=== PATIENT | female | born 1990 | race Asian ===

== ENCOUNTER 2016-10-29 17:56 | Emergency (ER) | payer OTHER ==
[~2016-10-29] VITALS: Ht 154.9 cm; Wt 49.9 kg
[~2016-10-29 17:56] MED LIST: HYDR-971 PO; NAPR500T3 PO
[2016-10-29 18:21] VITALS: BP 106/56
[2016-10-29] MEDS ORDERED: ACETAMINOPHEN 325 MG TABLET. PO ONE (18:30)
--- NOTE | 2016-10-29 18:56 | PHYS DOC ---
Past Medical History Past Medical History: No Pertinent History Past Surgical History: No Surgical History Alcohol Use: None Drug Use: None Adult General Chief Complaint Chief Complaint: FEVER HPI HPI Patient is a 26 year old female presents emergency room today with approximately 1 week history of fevers, chills and body aches. Patient states that she's also been having episodes of nausea and vomiting. Patient is from [place] and speaks [place]. She denies antibiotic use within the past 90 days. She denies hospitalization or known ill contacts within the past 90 days as well. Patient denies any history of chronic medical conditions. She does not currently have a primary care doctor. Review of Systems Review of Systems Constitutional: Denies fever or chills [] Eyes: Denies change in visual acuity, redness, or eye pain [] HENT: Denies nasal congestion or sore throat [] Respiratory: Denies cough or shortness of breath [] Cardiovascular: No additional information not addressed in HPI [] GI: Denies abdominal pain, nausea, vomiting, bloody stools or diarrhea [] : Denies dysuria or hematuria [] Musculoskeletal: Denies back pain or joint pain [] Integument: Denies rash or skin lesions [] Neurologic: Denies headache, focal weakness or sensory changes [] Endocrine: Denies polyuria or polydipsia [] Current Medications Current Medications Current Medications Medications (Trade) Dose Ordered Sig/Amy Start Time Stop Time Status Last Admin Dose Admin Acetaminophen (Tylenol) 650 mg 1X ONCE 10/29/16 18:30 10/29/16 18:31 DC 10/29/16 18:59 650 MG Ciprofloxacin (Cipro) 500 mg 1X ONCE 10/29/16 19:30 10/29/16 19:31 DC 10/29/16 19:30 500 MG Ondansetron HCl (Zofran Odt) 4 mg 1X ONCE 10/29/16 19:30 10/29/16 19:31 DC 10/29/16 19:30 4 MG Allergies Allergies Allergies Coded Allergies Type Severity Reaction Last Updated Verified No Known Drug Allergies 09/24/16 No Physical Exam Physical Exam Constitutional: Well developed, well nourished, no acute distress, non-toxic appearance. Patient is febrile. HENT: Normocephalic, atraumatic, bilateral external ears normal, oropharynx moist, no oral exudates, nose normal. [] Eyes: PERRLA, EOMI, conjunctiva normal, no discharge. [] Neck: Normal range of motion, no tenderness, supple, no stridor. [] Cardiovascular:Heart rate 122 with a regular rhythm, no murmur Lungs & Thorax: Bilateral breath sounds clear to auscultation Abdomen: Bowel sounds normal, soft, no masses, no pulsatile masses. There is mild suprapubic tenderness. There is no rebound or guarding. Skin: Warm, dry, no erythema, no rash. [] Back: No tenderness, no CVA tenderness. [] Extremities: No tenderness, no cyanosis, no clubbing, ROM intact, no edema. [] Neurologic: Alert and oriented X 3, normal motor function, normal sensory function, no focal deficits noted. [] Psychologic: Affect normal, judgement normal, mood normal. [] Current Patient Data Vital Signs Vital Signs Date Time Temp Pulse Resp B/P Pulse Ox O2 Delivery O2 Flow Rate FiO2 10/29/16 18:21 103.3 136 18 97 Room Air 103.3 Lab Values Laboratory Tests Test 10/29/16 18:22 10/29/16 19:01 Urine Collection Type Unknown Urine Color June Urine Clarity Cloudy Urine pH 6.0 Urine Specific [place] 1.015 Urine Protein 20mg/dL (NEG-TRACE) Urine Glucose (UA) Negativemg/dL (NEG) Urine Ketones (Stick) Negativemg/dL (NEG) Urine Blood Large (NEG) Urine Nitrite Positive (NEG) Urine Bilirubin Negative (NEG) Urine Urobilinogen Dipstick 1.0mg/dL (0.2 mg/dL) Urine Leukocyte Esterase Large (NEG) Urine RBC 6-10/HPF (0-2) Urine WBC >40/HPF (0-4) Urine Squamous Epithelial Cells Few/LPF Urine Bacteria Many/HPF (0-FEW) Urine Mucus Slight/LPF Urine Test Negative (NEG) Influenza Type A Antigen Negative (NEGATIVE) Influenza Type B Antigen Negative (NEGATIVE) EKG EKG [] Radiology/Procedures Radiology/Procedures PA and lateral chest x-ray was performed with adequate technique and reviewed by Dr. Duran myself. There is no evidence of a consolidation or infiltrate. Course & Med Decision Making Course & Med Decision Making Urine test is negative. Urine dipstick shows positive nitrites and large leukocyte esterase. Will await for micro from the lab. Patient was given 500 mg ciprofloxacin tablet as well as 4 mg Zofran ODT. Patient was observed for 30 minutes. Patient did not have any episodes of vomiting. At time of discharge, patient reports that she was feeling "much better". Dragon Disclaimer Dragon Disclaimer This electronic medical record was generated, in whole or in part, using a voice recognition dictation system. Departure Departure Impression: Primary Impression: Urinary tract infection Additional Impression: Fever Disposition: HOME, SELF-CARE Condition: IMPROVED Referrals: NO PCP (PCP) Patient Instructions: Fever, Adult, [id number], Urinary Tract Infection, Easy -to-Read Additional Instructions: 1. Take the medication as prescribed. 2. Take acetaminophen every 4-6 hours or ibuprofen every 8 hours for fever control. 3. Use the pamphlet provided for assistance in finding a primary care doctor. You should call in the morning to schedule follow-up appointment to be seen by Friday. 4. Please review the discharge instructions for reasons to return to the emergency room. Scripts Ciprofloxacin Hcl 500 Mg Tablet1 Tab PO BID #14 TAB Prov:DEMETRIUS LY 10/29/16 Ondansetron (Zofran Odt)4 Mg Tab.rapdis4 Mg PO Q8HRS PRN NAUSEA/VOMITING #10 TAB Prov:DEMETRIUS LY 10/29/16 Problem Qualifiers DEMETRIUS LY Oct 29, 2016 18:56
[2016-10-29 18:58] LABS: NEG OBC UR NEG
[2016-10-29 18:59] LABS: BILIRUBIN,URINE NEGATIVE (NEG); GLUCOSE,URINE NEGATIVE (NEG); NITRITE,URINE POSITIVE (NEG); POS OBC UR POS
[2016-10-29 19:12] LABS: BACTERIA,URINE MANY /HPF (0-FEW); PROTEIN,URINE 20 mg/dL (NEG-TRACE); SQUAMOUS EPITHELIAL CELL,UR FEW /LPF; WBC,URINE >40 /HPF (0-4)
[2016-10-29] MEDS ORDERED: CIPROFLOXACIN HCL 250 MG TABLET PO ONE (19:30)
[2016-10-29] MEDS ORDERED: ONDANSETRON ODT 4 MG TAB.RAPDIS PO ONE (19:30)
[2016-10-29 19:51] LABS: OBC FLU VALID
[2016-10-29] MEDS ORDERED: ONDA4TAB10 PO (19:54)
[2016-10-29] MEDS ORDERED: CIPR500T PO (19:54)
[2016-10-30 08:41] LABS: NEGATIVE OBC STREP NEG; POSITIVE OBC STREP POS
--- NOTE | 2016-10-30 08:57 | RAD ---
Chest, 2 views, 10/29/2016: History: Fever and shortness of breath The heart size and pulmonary vascularity are normal. No pulmonary infiltrates are seen. There is no evidence of pleural fluid. IMPRESSION: No acute cardiopulmonary abnormality is detected.
== END 2016-10-29 20:02 | disposition home or self-care (01) ==
LOC: ER 17:56
DX: N39.0 Urinary tract infection, site not specified (principal)
CPT/HCPCS: 71020; 81001; 81025; 87070; 87086; 87804; 87880; 99285; Q0162

== ENCOUNTER 2016-11-02 15:05 | Emergency (ER) | payer OTHER ==
[~2016-11-02] VITALS: Ht 167.6 cm; Wt 52.6 kg
[~2016-11-02 15:05] MED LIST changes: +CIPR500T PO; +ONDA4TAB10 PO
[2016-11-02 16:00] VITALS: BP 119/75
--- NOTE | 2016-11-02 16:06 | PHYS DOC ---
Past Medical History Past Medical History: No Pertinent History Past Surgical History: No Surgical History Alcohol Use: None Drug Use: None Adult General Chief Complaint Chief Complaint: VAGINAL BLEEDING [facility] HPI Patient is a 26 year old female who presents with follow up after being seen for a UTI on 10/29/16. Denies any fever, abdominal pain, n/v, urinary symptoms, back pain. Used interpretor phone #[phone] Review of Systems Review of Systems Constitutional: Denies fever or chills Eyes: Denies change in visual acuity, redness, or eye pain HENT: Denies nasal congestion or sore throat Respiratory: Denies cough or shortness of breath Cardiovascular: No additional information not addressed in HPI GI: Denies abdominal pain, nausea, vomiting, bloody stools or diarrhea : Denies dysuria or hematuria. Reports vaginal bleeding with uncomplicated vaginal delivery 09/24/16. Denies change in amount Musculoskeletal: Denies back pain or joint pain [] Integument: Denies rash or skin lesions [] Neurologic: Denies headache, focal weakness or sensory changes [] Endocrine: Denies polyuria or polydipsia [] Allergies Allergies Allergies Coded Allergies Type Severity Reaction Last Updated Verified No Known Drug Allergies 09/24/16 No Physical Exam Physical Exam Constitutional: Well developed, well nourished, no acute distress, non-toxic appearance. HENT: Normocephalic, atraumatic, bilateral external ears normal, oropharynx moist, no oral exudates, nose normal. Eyes: PERRLA, EOMI, conjunctiva normal, no discharge. Neck: Normal range of motion, no tenderness, supple, no stridor. Cardiovascular:Heart rate regular rhythm, no murmur Lungs & Thorax: Bilateral breath sounds clear to auscultation Abdomen: Bowel sounds normal, soft, no tenderness, no masses, no pulsatile masses. Skin: Warm, dry, no erythema, no rash. Back: No tenderness, no CVA tenderness. Extremities: No tenderness, no cyanosis, no clubbing, ROM intact, no edema. Neurologic: Alert and oriented X 3, normal motor function, normal sensory function, no focal deficits noted. Psychologic: Affect normal, judgement normal, mood normal. [] Current Patient Data Vital Signs Vital Signs Date Time Temp Pulse Resp B/P Pulse Ox O2 Delivery O2 Flow Rate FiO2 11/02/16 15:25 97.6 63 18 108/53 99 Room Air 97.6 EKG EKG [] Radiology/Procedures Radiology/Procedures [] Impressions: 1. UTI symptoms, resolved Course & Med Decision Making Course & Med Decision Making Pertinent Labs and Imaging studies reviewed. (See chart for details) [] Dragon Disclaimer Dragon Disclaimer This electronic medical record was generated, in whole or in part, using a voice recognition dictation system. Departure Departure Impression: Primary Impression: Well adult exam Disposition: HOME, SELF-CARE Condition: STABLE Referrals: NO PCP (PCP) Patient Instructions: Urinary Tract Infection, [id number] Additional Instructions: 1. Continue the Cipro antibiotic as prescribed. 2. Return if any problems or concerns YENY NOE APRN Nov 02, 2016 16:06
== END 2016-11-02 16:10 | disposition home or self-care (01) ==
LOC: ER 15:05
DX: Z00.8 Encounter for other general examination (principal); N93.9 Abnormal uterine and vaginal bleeding, unspecified
CPT/HCPCS: 99281

== ENCOUNTER 2020-08-27 14:01 | Emergency (ER) | payer OTHER ==
[~2020-08-27] VITALS: Ht 152.4 cm; Wt 47.7 kg
[~2020-08-27 14:01] MED LIST changes: +HYDR-3164 PO; -HYDR-971 PO; +NAPR-514 PO; -NAPR500T3 PO
[2020-08-27 14:30] LABS: BILIRUBIN,URINE NEGATIVE (NEG); CLARITY,URINE CLEAR; COLOR,URINE YELLOW; NITRITE,URINE NEGATIVE (NEG); PH,URINE 6.5 (<5.0-8.0); PROTEIN,URINE NEGATIVE (NEG-TRACE); UROBILINOGEN,URINE 0.2 mg/dL (0.2 mg/dL)
[2020-08-27 14:37] LABS: BACTERIA,URINE MANY /HPF (0-FEW)
--- NOTE | 2020-08-27 14:44 | PHYS DOC ---
Past Medical History Past Medical History: No Pertinent History Past Surgical History: No Surgical History Smoking Status: Never Smoker Alcohol Use: None Drug Use: None General Adult EDM: Chief Complaint: VAGINAL BLEEDING HPI: HPI: 30 yo F @ approximately 6w1d (based on 07/15 lmp), presents to the ED wi th complaints of lower abdominal cramping and vaginal bleeding since . Denies any current medications and has not seen a physician regarding this . No h/o IVF or anemia or hemorrhage. Review of Systems: Review of Systems: Constitutional: Denies fever or chills. [] Eyes: Denies change in visual acuity. [] HENT: Denies nasal congestion or sore throat. [] Respiratory: Denies cough or shortness of breath. [] Cardiovascular: Denies chest pain or edema. [] GI: Denies abdominal pain, nausea, vomiting, bloody stools or diarrhea. [] : Denies dysuria. [] Musculoskeletal: Denies back pain or joint pain. [] Integument: Denies rash. [] Neurologic: Denies headache, focal weakness or sensory changes. [] Endocrine: Denies polyuria or polydipsia. [] Lymphatic: Denies swollen glands. [] Psychiatric: Denies depression or anxiety. [] Heart Score: Risk Factors: Risk Factors: DM, Current or recent (<one month) smoker, HTN, HLP, family history of CAD, obesity. Risk Scores: Score 0 - 3: 2.5% MACE over next 6 weeks - Discharge Home Score 4 - 6: 20.3% MACE over next 6 weeks - Admit for Clinical Observation Score 7 - 10: 72.7% MACE over next 6 weeks - Early Invasive Strategies Allergies: Allergies: Allergies Coded Allergies Type Severity Reaction Last Updated Verified No Known Drug Allergies 09/24/16 No Physical Exam: PE: Constitutional: Well developed, well nourished, no acute distress, non-toxic appearance. [] HENT: Normocephalic, atraumatic, bilateral external ears normal, oropharynx moist, no oral exudates, nose normal. [] Eyes: PERRLA, EOMI, conjunctiva normal, no discharge. [] Neck: Normal range of motion, no tenderness, supple, no stridor. [] Cardiovascular:Heart rate regular rhythm, no murmur [] Lungs & Thorax: Bilateral breath sounds clear to auscultation [] Abdomen: Bowel sounds normal, soft, no tenderness, no masses, no pulsatile masses. [] Skin: Warm, dry, no erythema, no rash. [] Back: No tenderness, no CVA tenderness. [] Extremities: No tenderness, no cyanosis, no clubbing, ROM intact, no edema. [] Neurologic: Alert and oriented X 3, normal motor function, normal sensory function, no focal deficits noted. [] Psychologic: Affect normal, judgement normal, mood normal. [] Pelvic: Chaperoned by RN, external genitalia normal, moderate/large vaginal bleeding, multiparous cervical os slightly open with active vaginal bleeding, no cervical erythema, no CMT or adnexal tenderness, tolerated exam well Current Patient Data: Labs: Laboratory Tests Test 08/27/20 14:06 Urine Collection Type Unknown Urine Color Yellow Urine Clarity Clear Urine pH 6.5 (<5.0-8.0) Urine Specific [place] <=1.005 (1.000-1.030) Urine Protein Negative mg/dL (NEG-TRACE) Urine Glucose (UA) Negative mg/dL (NEG) Urine Ketones (Stick) Negative mg/dL (NEG) Urine Blood Large (NEG) Urine Nitrite Negative (NEG) Urine Bilirubin Negative (NEG) Urine Urobilinogen Dipstick 0.2 mg/dL (0.2 mg/dL) Urine Leukocyte Esterase Small (NEG) Urine RBC 11-20 /HPF (0-2) Urine WBC 1-4 /HPF (0-4) Urine Squamous Epithelial Cells Many /LPF Urine Bacteria Many /HPF (0-FEW) EKG: EKG: [] Radiology/Procedures: Radiology/Procedures: [] Course & Med Decision Making: Course & Med Decision Making Pertinent Labs and Imaging studies reviewed. (See chart for details) Concern for inevitable sab and hypokalemia in the setting of active vaginal bleeding in first trimester , cervical os with active blood loss/no parts, no hemorrhage. RH+. No anemia/thrombocytopenia. Contaminated urinalysis. Potassium replacement started in ED. Upon reevaluation using a second [place] organizational development specialist, patient reports she has had a prior miscarriage that she passed spontaneously but recalls a D&C was offered. Pt is requesting a D&C. D/w Dr. Dubon who reviewed labs-recommended patient to follow-up patient in her clinic tomorrow morning to schedule an outpatient D&C and repeat her hemoglobin. Strict ED return precautions were given for brisk bleeding, syncope, difficulties breathing, severe abdominal or back pain or chest pain. Encouraged urgent outpatient follow-up with PMD and [facility]. Life-threatening processes were considered but are low suspicion at this time, given history and physical exam. Pt was educated on all prescription medications and adverse effects. All patient's questions were answered and pt was stable at time of discharge. Life/limb-threatening differential includes but is not limited to, aortic dissection, aortic aneurysm, acute coronary syndrome, surgical abdomen (appendicitis, cholecystitis, ischemic bowel, strangulated hernia, etc), bowel obstruction or volvulus, bladder outlet obstruction, gastrointestinal bleeding, inflammatory bowel disease, peptic ulcer disease, sepsis, diverticular disease, ureterolithiasis, nephrolithiasis, ovarian or testicular torsion, ectopic , vaginal hemorrhage, or genitourinary infection. I spoken with the patient and her caregivers. I explained the patient's condition, diagnoses and treatment plan based on the information available to me at this time. I have answered the patient and her caregiver's questions and addressed any concerns. The patient and her caregivers have a good understanding of patient's diagnosis, condition and treatment plan as can be expected at this point. Vital signs have been stable. Patient's condition is stable and appropriate for discharge from the emergency department. Patient will pursue further outpatient evaluation with primary care physician or other designated or consulting physician as outlined in the discharge instructions. The patient and/or caregivers are agreeable to this plan of care and follow-up instructions have been explained in detail. The patient and/or caregivers have received these instructions in written form and have expressed an understanding of the discharge instructions. The patient and/or caregivers are aware that any significant change of condition or worsening of symptoms should prompt immediate return to this or the closest emergency department or call to 911. Trace Disclaimer: Trace Disclaimer: This electronic medical record was generated, in whole or in part, using a voice recognition dictation system. Departure Departure Impression: Primary Impression: Vaginal bleeding in patient at less than 20 weeks gestation Additional Impressions: Hypokalemia Incomplete inevitable without complication Disposition: 01 DC HOME SELF CARE/HOMELESS Condition: STABLE Referrals: NO PCP (PCP) FOLLOW UP WITH FAMILY MEDICINE: to recheck you potassium Family Medicine Address: [address], [address] [place] [address] Patient Instructions: Incomplete Miscarriage Additional Instructions: FOLLOW UP WITH [facility]: Dr. Edita Spivey MD TOMORROW 08/28/20 at 9am - do not eat/drink after midnight Dr Ling FARRAR, [facility] [address], [address] [place] [address] EMERGENCY DEPARTMENT GENERAL DISCHARGE INSTRUCTIONS Thank you for coming to [facility] Emergency Department (ED) today and trusting us with you care. We trust that you had a positive experience in our Emergency Department. If you wish to speak to the department management, you may call the Director at [phone]. YOUR FOLLOW UP INSTRUCTIONS ARE FOLLOWS: 1. Do you have a private Doctor? If you do not have a private doctor, please ask for a resource list of physicians or clinics that may be able to assist you with follow up care. 2. The Emergency Physicain has interpreted your x-rays. The X-Ray specialist will also review them. If there is a change in the findings, you will be notified in 48 hours when at all possible. 3. A lab test or culture has been done, your results will be reviewed and you will be notified if you need a change in treatment. ADDITIONAL INSTRUCTIONS AND INFORMATION: 1. Your care today has been supervised by a physician who is specially trained in emergency care. Many problems require more than one evaluation for a complete diagnosis and treatment. We recommend that you schedule your follow up appointment as recommended to ensure complete treatment of you illness or injury. If you are unable to obtain follow up care and continue to have a problem, or if your condition worsens, we recommend that you return to the ED. 2. We are not able to safely determine your condition over the phone nor are we able to give sound medical advice over the phone. For these safety reasons, if you call for medical advice we will ask you to come to the ED for further evaluation. 3. If you have any questions regarding these discharge instructions please call the ED at [phone]. SAFETY INFORMATION: In the interest of safety, wellness, and injury prevention; we encourage you to wear your sealbelt, if you smoke; quite smoking, and we encourage family to use a protective helmet for bicycling and other sporting events that present an increased risk for head injury. IF YOUR SYMPTOMS WORSEN OR NEW SYMPTOMS DEVELOP, OR YOU HAVE CONCERNS ABOUT YOUR CONDITION; OR IF YOUR CONDITION WORSENS WHILE YOU ARE WAITING FOR YOUR FOLLOW UP APPOINTMENT; EITHER CONTACT YOUR PRIMARY CARE DOCTOR, THE PHYSICIAN WHOSE NAME AND NUMBER YOU WERE GIVEN, OR RETURN TO THE ED IMMEDIATELY. [facility] Aug 27, 2020 14:44
[2020-08-27 14:46] LABS: BASO % 0 % (0-3); EOS # 0.2 x10^3/uL (0.0-0.7); EOS % 2 % (0-3); HEMATOCRIT 39.7 % (36.0-47.0); HEMOGLOBIN 13.7 g/dL (12.0-15.5); LYMPH % 26 % (24-48); MEAN CORPUSCULAR HEMOGLOBIN 30 pg (25-35); MEAN CORPUSCULAR HGB CONC 35 g/dL (31-37); MEAN CORPUSCULAR VOLUME 88 fL (79-100); MONO # 0.4 x10^3/uL (0.0-1.1); MONO % 5 % (0-9); NEUT # 5.1 x10^3/uL (1.8-7.7); NEUT % 67 % (31-73); PLATELET COUNT 246 x10^3/uL (140-400); RED BLOOD COUNT 4.53 x10^6/uL (3.50-5.40); RED CELL DISTRIBUTION WIDTH 13.1 % (11.5-14.5); WHITE BLOOD COUNT 7.6 x10^3/uL (4.0-11.0)
[2020-08-27 14:54] LABS: PROTHROMBIN TIME PATIENT 14.2 SEC (11.7-14.0)
[2020-08-27 15:00] LABS: ALBUMIN/GLOBULIN RATIO 1.1 (1.0-1.7); CALCIUM 8.6 mg/dL (8.5-10.1); CREATININE 0.6 mg/dL (0.6-1.0); GFR 118.2; TOTAL BILIRUBIN 0.4 mg/dL (0.2-1.0); TOTAL PROTEIN 7.6 g/dL (6.4-8.2)
[2020-08-27 15:09] LABS: POTASSIUM 2.8 mmol/L (3.5-5.1)
[2020-08-27] MEDS ORDERED: POTASSIUM CHLORIDE 20MEQ 100 ML IV ONE (15:15)
[2020-08-27] MEDS ORDERED: POTASSIUM CHLORIDE 20 MEQ TABLET.ER. PO ONE (15:15)
--- NOTE | 2020-08-27 16:50 | RAD ---
Obstetric ultrasound less than 14 weeks HISTORY: , vaginal bleeding. Technique: Transabdominal and transvaginal transducers were utilized. FINDINGS: Transabdominal sonography demonstrates anteverted uterus measuring 9.6 x 4.8 cm on sagittal imaging. There is a fundal intrauterine gestational sac. Right ovary measures 3.2 x 1.8 x 2.2 cm with a 1.5 cm follicle. Left ovary measures 3.8 x 2.1 x 1.6 cm. There is intact bilateral ovarian blood flow. Transvaginal imaging demonstrates anteverted uterus measuring 8.5 x 4.6 x 6 x 1 cm. There is a single fundal intrauterine gestational sac with a subjectively normal volume of amniotic fluid. There is abnormally dilated yolk sac with a diameter of 9 mm. There is a unusual somewhat cystic-appearing pole with crown-rump length 0.36 cm estimating sonographic gestational age of 6 weeks 0 days. No cardiac activity can be documented on either the saved dynamic grayscale imaging or on power Doppler imaging. There is a thin subcentimeter subchorionic hemorrhage along the inferior gestational sac. Right ovary measures 2.1 x 1.5 x 1.5 cm. Left ovary measures 2.5 x 1.3 x 1.6 cm. Miniscule volume of simple fluid at cul-de-sac. IMPRESSION: 1. Single intrauterine gestational sac. There is a single pole with estimated sonographic gestational age of 6 weeks 0 days. No cardiac activity can be documented. At this early gestational stage it can occasionally be difficult to document cardiac activity, however, the fetus has an unusual cystic appearance and the yolk sac is abnormally dilated with a diameter of 9 mm, which raises suspicion of demise with true absence of cardiac activity. 2. Thin subcentimeter subchorionic hemorrhage. 3. Otherwise negative exam. Electronically signed by: Kennedy Yeager MD (08/27/2020 4:47 PM) [id number]
[2020-08-27 18:30] VITALS: BP 110/67
== END 2020-08-27 18:41 | disposition home or self-care (01) ==
LOC: ER 14:01
DX: O03.4 Incomplete spontaneous abortion without complication (principal); O46.91 Antepartum hemorrhage, unspecified, first trimester; E87.6 Hypokalemia; R10.30 Lower abdominal pain, unspecified; Z3A.01 Less than 8 weeks gestation of pregnancy
CPT/HCPCS: 36415; 76801; 76817; 80053; 81001; 81025; 83735; 84702; 85025; 85610; 85730; 86850; 86900; 86901; 87086; 96365; 99285; J3480